=== PATIENT | female | born 1980 | race Caucasian/White ===

== ENCOUNTER 2018-07-15 14:38 | Emergency (ER) | payer SELFPAY ==
[~2018-07-15 14:38] MED LIST: CEP500 PO; CLIN75SO6 PO
--- NOTE | 2018-07-15 14:45 | ER Report ---
History and Physical Time Seen By MD: 14:45 HPI/ROS CHIEF COMPLAINT: Left shoulder dislocation HISTORY OF PRESENT ILLNESS: 37-year-old female patient presents to emergency room with complaint of left shoulder dislocation. Patient states that she was working making a uMentioned size bed and was trying to lift up the fitted she done w ith her shoulder slipped out. She states that this happened in the past. She states last time this happened was 2 years ago when she was roller skating and fell backwards. She states that she does have some numbness and tingling to the left upper arm. She is able wiggle her fingers without any difficulties. Patient has not taken any medication for this. REVIEW OF SYSTEMS: Respiratory: No cough, no dyspnea. Cardiovascular: No chest pain, no palpitations. Gastrointestinal: No vomiting, no abdominal pain. Musculoskeletal: No back pain. Allergies: Coded Allergies: Penicillins (Unverified Allergy, Unknown, 07/15/18) doxycycline (Verified Allergy, Unknown, 07/15/18) tetracycline (Verified Allergy, Unknown, 07/15/18) Home Meds Reported Medications Multivitamin With Minerals (MULTIPLE VITAMIN) 1 Each Tablet, 1 EACH PO, TAB 07/15/18 Past Medical/Surgical History Patient has a past medical history of irregular heartbeat, miscarriage, alcohol use. Patient denies any surgical history. Reviewed Nurses Notes: Yes Hx Smoking: Yes Smoking Status: Former Smoker Hx Substance Use Disorder: No Hx Alcohol Use: Yes (OCC) Constitutional Vital Sign - Last 24 Hours 07/15/18 07/15/18 07/15/18 07/15/18 14:43 14:43 14:45 14:50 Temp 98.4 Pulse 84 82 Resp 20 B/P (MAP) 141/129 (133) 141/129 151/109 (123) Pulse Ox 97 97 O2 Delivery Room Air 07/15/18 07/15/18 07/15/18 07/15/18 14:55 15:00 15:05 15:10 Pulse 87 82 73 71 Pulse Ox 97 93 95 92 07/15/18 07/15/18 07/15/18 07/15/18 15:15 15:20 15:25 15:30 Pulse 71 69 70 78 B/P (MAP) 121/111 (114) Pulse Ox 91 95 95 92 07/15/18 07/15/18 07/15/18 07/15/18 15:35 15:40 15:42 15:45 Pulse 75 84 72 Resp 21 20 B/P (MAP) 164/116 (132) Pulse Ox 95 97 97 07/15/18 07/15/18 07/15/18 07/15/18 15:50 15:55 16:00 16:05 Pulse 75 101 118 96 Resp 14 9 18 12 B/P (MAP) 148/106 (120) 163/110 (127) 172/105 (127) 160/103 (122) Pulse Ox 97 97 75 96 07/15/18 07/15/18 07/15/18 07/15/18 16:10 16:15 16:20 16:25 Pulse 82 84 84 83 Resp 10 11 14 9 B/P (MAP) 145/102 (116) Pulse Ox 96 95 97 91 07/15/18 07/15/18 07/15/18 07/15/18 16:30 16:35 16:40 16:45 Pulse 78 77 73 ??? Resp 15 10 24 19 B/P (MAP) 144/94 (111) 137/93 (108) Pulse Ox 97 97 99 98 07/15/18 07/15/18 07/15/18 07/15/18 16:50 16:55 17:00 17:05 Pulse 75 70 73 73 Resp 20 11 12 11 B/P (MAP) 143/94 (110) Pulse Ox 93 93 93 89 07/15/18 17:10 Pulse 69 Resp 57 B/P (MAP) 145/100 (115) Pulse Ox 93 Physical Exam General Appearance: The patient is alert, has no immediate need for airway protection and no current signs of toxicity. Respiratory: Chest is non tender, lungs are clear to auscultation. Cardiac: regular rate and rhythm Gastrointestinal: Abdomen is soft and non tender, no masses, bowel sounds normal. Musculoskeletal: Neck: Neck is supple and non tender. Extremities have full range of motion and are non tender. Left shoulder is dislocated anteriorly, stable medical fingers that any difficulties. Tender to palpation. Skin: No rashes or lesions. DIFFERENTIAL DIAGNOSIS: After history and physical exam differential diagnosis was considered for dislocation, fracture. Medical Decision Making EKG/Imaging Imaging SHOULDER MIN 2 VIEWS LEFT HISTORY: Shoulder dislocation. COMPARISON: 07/15/2018 FINDINGS: Left shoulder: Prior anterior-inferior glenohumeral dislocation is been reduced. Hill-Sachs defect noted. No discrete bony Bankart lesion. IMPRESSION: 1. Interval reduction of the glenohumeral joint. 2. Hill-Sachs defect noted. Report Dictated By: Husam Kirkpatrick MD at 07/15/2018 4:26 PM Report E-Signed By: Husam Kirkpatrick MD at 07/15/2018 4:27 PM SHOULDER MIN 2 VIEWS LEFT HISTORY: shoulder dislocation COMPARISON: None FINDINGS: Left shoulder: Anterior-inferior glenohumeral dislocation. The acromioclavicular joint is normal in appearance. IMPRESSION: 1. Anterior-inferior glenohumeral dislocation. Report Dictated By: Husam Kirkpatrick MD at 07/15/2018 3:29 PM Report E-Signed By: Husam Kirkpatrick MD at 07/15/2018 3:30 PM ED Course/Re-evaluation ED Course Patient was admitted to exam room, history and physical were obtained. Differential diagnoses were considered. On examination patient has obvious anterior dislocation of the left shoulder. X-rays done, IV was started and patient received 50 g of fentanyl. X-ray verified the patient does in fact have an anterior dislocation of the left shoulder. Conscious sedation was done and the shoulder was reduced as described below. Patient tolerated procedure well. She came out without any difficulties. We will go ahead and discharge patient home at this time. She states, ibuprofen as needed for pain. She is wearing a sling 23 out of 24 hours a day. She is to follow-up with [facility]. Patient verbalized understanding and agreement with plan. Procedure: Procedural sedation. A pre-sedation evaluation was completed on the patient at 1530. Patient is an appropriate candidate for procedural sedation. The risks of the sedation were discussed with the patient. A time out was completed. The patient was reevaluated immediately prior to initiation of sedation. The patient was sedated with 70 mg of ketones fall and 30 mg of ketamine. The patient was monitored with continuous pulse oximetry and court recording monitor. There were no complications and no significant hypoxemia. I remained at the bedside for the sedation. The total time I spent in the procedural sedation was 10 minutes. Post sedation evaluation: Patient was alert and cooperative, hemodynamically stable with appropriate respiratory status, temperature and pain control without ongoing nausea and vomiting. Sedation was done by Dr. Sepulveda Procedure: Dislocation reduction. The shoulder was reduced in the usual fashion without complications. Post reduction the patient's neurovascular exam is normal. Post reduction x-ray demonstrates reduction of the joint to the anatomic position. The procedure was performed by myself under direct supervision of Dr. Sepulveda Decision to Disposition Date: Jul 15, 2018 Decision to Disposition Time: 16:51 Depart Departure Latest Vital Signs Vital Signs Date Time Temp Pulse Resp B/P (MAP) Pulse Ox O2 Delivery O2 Flow Rate FiO2 07/15/18 17:10 69 57 145/100 (115) 93 07/15/18 14:43 98.4 Room Air Impression: Primary Impression: Shoulder dislocation Condition: Improved Disposition: HOME OR SELF-CARE Referrals: KVNG KENDALL PA-C (PCP) SAMY QUINONES MD Patient Instructions: Shoulder Dislocation (ED) Additional Instructions: Limit activity by pain. Ice the shoulder 2-3 times a day for 20-30 minutes. Follow up with [facility], call Tuesday to make an appointment. Wear the sling 23 out of 24 hours a day, he may take it off to shower. When you do please do not lift left hand above head. Return to the ER with uncontrollable pain or numbness to the hand. You may take Ibuprofen or Tylenol as needed for pain. Problem Qualifiers Primary Impression: Shoulder dislocation Encounter type: initial encounter Laterality: left Qualified Codes: S43.005A - Unspecified dislocation of left shoulder joint, initial encounter VIC CORDOVA Jul 15, 2018 14:45
[2018-07-15] MEDS ORDERED: MULT-1335 PO (14:49)
[2018-07-15] MEDS ORDERED: PROPOFOL EMUL 10MG/ML 20 ML VL IV ONE (14:55)
[2018-07-15] MEDS ORDERED: ONDANSETRON 4 MG/2 ML VIAL IVP ONE (14:55)
[2018-07-15] MEDS ORDERED: KETAMINE HCL 500 MG/5 ML VIAL IVP ONE (14:55)
[2018-07-15] MEDS ORDERED: fentaNYL CITR 100 MCG/2 ML AMP IVP ONE (14:55)
[2018-07-15] MEDS ORDERED: NS(*) 0.9% 1000 ML BAG 1,000 ML IV ONE (15:25)
--- NOTE | 2018-07-15 15:34 | RADIOLOGY IMAGING REPORT ---
FACILITY: [facility] [place] PATIENT NAME: Elizabeth Hopper : 1980 MR: [id number] V: [id number] EXAM DATE: ORDERING PHYSICIAN: VIC CORDOVA TECHNOLOGIST: Location: [facility] [place] Patient: Elizabeth Hopper : 1980 Visit/Account:[id number] Date of Sevice: 07/15/2018 SHOULDER MIN 2 VIEWS LEFT HISTORY: shoulder dislocation COMPARISON: None FINDINGS: Left shoulder: Anterior-inferior glenohumeral dislocation. The acromioclavicular joint is normal in a ppearance. IMPRESSION: 1. Anterior-inferior glenohumeral dislocation. Report Dictated By: Husam Kirkpatrick MD at 07/15/2018 3:29 PM Report E-Signed By: Husam Kirkpatrick MD at 07/15/2018 3:30 PM WSN:[id number]
[2018-07-15] MEDS ORDERED: LORazepam 2 MG/ML VIAL IVP ONE (16:05)
--- NOTE | 2018-07-15 16:31 | RADIOLOGY IMAGING REPORT ---
[facility] PATIENT NAME: Elizabeth Hopper : 1980 MR: [id number] V: [id number] EXAM DATE: ORDERING PHYSICIAN: VIC CORDOVA TECHNOLOGIST: Location: [facility] Patient: Elizabeth Hopper : 1980 Visit/Account:[id number] Date of Sevice: 07/15/2018 SHOULDER MIN 2 VIEWS LEFT HISTORY: Shoulder dislocation. COMPARISON: 07/15/2018 FINDINGS: Left shoulder: Prior anterior-inferior glenohumeral dislocation is been reduced. Hill-Sachs defect no sharmaine. No discrete bony Bankart lesion. IMPRESSION: 1. Interval reduction of the glenohumeral joint. 2. Hill-Sachs defect noted. Report Dictated By: Husam Kirkpatrick MD at 07/15/2018 4:26 PM Report E-Signed By: Husam Kirkpatrick MD at 07/15/2018 4:27 PM WSN:[id number]
[2018-07-15 17:10] VITALS: BP 145/100
== END 2018-07-15 17:40 | disposition home or self-care (01) ==
LOC: ER 14:57
DX: S43.005A Unspecified dislocation of left shoulder joint, initial encounter (principal)
CPT/HCPCS: 23650; 73030; 96361; 96374; 96375; 99152; 99285; A4565; J2060; J2405; J2704; J3010; J7030